=== PATIENT | male | born 2000 | race Caucasian/White ===

== ENCOUNTER 2022-01-12 15:35 | Emergency (ER) | payer OTHER, SELFPAY ==
[2022-01-12 15:43] VITALS: BP 111/67; PULSE 81; RESP 16; TEMP 36.9; O2SAT 98; BMI 20.9
[2022-01-12] MEDS: LIDOCAINE 1 % PF 30 ML 5 ML INJECTION (16:20)
--- NOTE | 2022-01-12 16:49 | ED.GENADULT ---
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 He had head head contact with another player and cut his right lateral forehead just above the lateral aspect of his eyebrow ill along the Kyle lines good hemostasis, personal fitness trainer recommended consultation, the patient has not had any loss of consciousness, vomiting, nausea, or neck pain or back pain. Really denies headache he stated that it was simply a glancing blow that cut his face. He is up-to-date on immunizations his mom is here with him Related Data Home Medications Medication Instructions Recorded Confirmed No Known Home Medications 01/12/22 01/12/22 Allergies Allergy/AdvReac Type Severity Reaction Status Date / Time amoxicillin Allergy Unknown Uncoded 01/12/22 15:46 Review of Systems Status of ROS: Reports: 6 or more systems reviewed and unremarkable except as noted in History and below Exam Narrative: Exam Narrative: Objective: Hugh is alert orient x3 Vital signs unremarkable HEENT shows a 1/2 cm laceration just above the right eyebrow along the Kyle lines curvilinear to the outer part of the eyebrow not involving the eyebrow. HEENT otherwise unremarkable neck supple he denies any neck or back pain neurologic is nonfocal by his report Procedure after sterile scrub 1% xylocaine without epinephrine used for anesthesia 3 simple interrupted 4-0 Ethilon sutures placed good skin edge approximation good hemostasis, patient tolerated this well Const: Vital Signs, click to edit/add: Vital Signs - 24 hr 01/12/22 15:43 Temperature 98.5 F Pulse Rate [Pulse Oximeter] 81 Respiratory Rate 16 Blood Pressure [Ri ght Upper Arm] 111/67 Pulse Oximetry 98 Oxygen Delivery Me thod Room Air Course Vital Signs Vital signs: Initial Vital Signs Temperature 98.5 F 01/12/22 15:43 Temperature Source Temporal Artery Scan 01/12/22 15:43 Pulse Rate 81 01/12/22 15:43 Pulse Rhythm 01/12/22 15:43 Pulse Strength 3+ Normal 01/12/22 15:43 Respiratory Rate 16 01/12/22 15:43 Blood Pressure 111/67 01/12/22 15:43 Blood Pressure Mean 81 01/12/22 15:43 Blood Pressure Position Sitting 01/12/22 15:43 Pulse Oximetry 98 01/12/22 15:43 Oxygen Delivery Method 01/12/22 15:43 Vital Signs Temperature 98.5 F 01/12/22 15:43 Pulse Rate 81 01/12/22 15:43 Respiratory Rate 16 01/12/22 15:43 Blood Pressure 111/67 01/12/22 15:43 Pulse Oximetry 98 01/12/22 15:43 Oxygen Delivery Method 01/12/22 15:43 Temperature 98.5 F 01/12/22 15:43 Pulse Rate 81 01/12/22 15:43 Respiratory Rate 16 01/12/22 15:43 Blood Pressure 111/67 01/12/22 15:43 Pulse Oximetry 98 01/12/22 15:43 Oxygen Delivery Method 01/12/22 15:43 Medical Decision Making [facility] Narrative Medical decision making narrative: The patient has a laceration of the forehead that was repaired. He does not appear to have significant head injury, would recommend observation q.2 hours the next 6-8 hours, but he really had no headache loss conscious, neck pain back pain or vomiting. Any difficulty follow up with primary care or ER in their hometown he is actually anxious to get on the moved to get to his bus which is heading back to [facility] now. Suture removal in 6-7 days, watch for redness infection, he is updated on image injections in in immunizations. Call if any questions or concerns, Tylenol as needed for discomfort. Discharge Plan Discharge Clinical Impression: Laceration Patient Disposition: Home w/ Parent or Adult Condition: Improved Additional Instructions: Suture removal in 6-7 days, watch for redness or infection, patient is up-to-date on tetanus, Tylenol as needed for discomfort, light activity for the next few days, no contact activity, work with the personal fitness trainer regarding return to the activity recommendations regarding his injury. Activity Level: Light activity Discharge Diet: Regular Prescriptions: No Action No Known Home Medications Follow Up/Referrals: Provider,Not a Local [Primary Care Provider] - Stand Alone Forms: Captain Wise Info Instructions
== END 2022-01-12 16:50 | disposition home or self-care (01) ==
PROVIDERS: Emergency Provider Family Medicine
DX: S01.81XA Laceration without foreign body of other part of head, initial encounter (principal); Y93.66 Activity, soccer; Y92.322 Soccer field as the place of occurrence of the external cause
CPT/HCPCS: 12011; 99282; 99283; J2001